=== PATIENT | male | born 1980 | race Caucasian/White ===

== ENCOUNTER 2016-09-01 09:27 | Inpatient (IN) | payer OTHER ==
[2016-09-01] MEDS ORDERED: PERCOCET 5MG/325MG TAB PO ONE (10:00)
[2016-09-01] MEDS ORDERED: D5W/LR 1,000 ML IV SCH (10:00)
[2016-09-01] MEDS ORDERED: CelecoXIB (CeleBREX) 100 MG CAP PO ONE (10:00)
[2016-09-01] MEDS ORDERED: NAPR500T PO (10:48)
[2016-09-01] MEDS ORDERED: NAPR500T3 PO (10:48)
[2016-09-01] MEDS ORDERED: TRAM-533 PO (10:49)
--- NOTE | 2016-09-01 11:37 | HPE ---
DATE OF ADMISSION: 09/01/2016 CHIEF COMPLAINT: Neck pain and pain radiating to his left upper extremity. HISTORY: This pleasant 36-year-old male patient did develop a stiff neck around August 05, 2016. He initially noted just a stiff neck and in August started to develop numbness and tingling in his hand mainly along his small finger, ring finger and middle finger. It continued to progress to the point that he is unable to perform weightlifting type activities due to the pain and weakness in his left upper extremity. He feels now that he is unable to do push-ups. He was initially able to bench press 405 and now he cannot bench press 130 pounds. He tried anti-inflammatories and rest and activity modifications but continued to have symptoms. He was seen in the [facility] where they noted a large C5-6 left-sided disk and sent him to orthopedics due to his weakness and disc herniation. He was seen by Dr. Greenwood who recommended an anterior cervical decompression and fusion at C5-6 on an urgent basis. X-rays notable for relatively unremarkable cervical series. MRI is notable for a large C5-6 left-sided disk herniation. MEDICAL OPTIMIZATION: None. ALLERGIES: NO KNOWN DRUG ALLERGIES. CURRENT MEDICATIONS: Tramadol and naproxen. He discontinued naproxen 1 day ago. He is also on a Medrol Dose pack. MEDICAL HISTORY: Neck pain and pain radiating to his left arm, otherwise unremarkable. PAST SURGICAL HISTORY: He had a left ankle fracture that was treated with open reduction internal fixation. SOCIAL HISTORY: Does not smoke. He does not use alcohol. He is currently employed the . FAMILY HISTORY: Noncontributory. REVIEW OF SYSTEMS: Denies fever or chills. Denies chest pain, shortness breath or cough. Denies difficulty breathing. Denies abdominal pain. Denies nausea or vomiting. Notes persistent pain in his neck and weakness in his left upper extremity and pain shooting down his left arm. PHYSICAL EXAMINATION: Physical exam today reveals a well-nourished, well-developed alert male patient who walks with a normal gait. His gait is not wide-based. Spurling's is positive and triceps and biceps strength is 3/5 on the left in comparison to the right. Deep tendon reflexes are 1 at the left arm, 1 at the bilateral biceps, absent at the left brachial radialis, trace at the triceps on the left, 1 at the triceps on the right, trace at the brachial radialis on the right. Deep tendon reflex lower extremities are 1 at the ankles, 1 at the knees. Clonus is negative. Mcwilliams's is negative. He was irritability with hyperextension on exam. Skin is intact. No erythema, edema or ecchymosis. Lungs are clear to auscultation without rales or wheeze. Heart: Regular rate and rhythm. Abdomen: Bowel sounds are present. His mood and affect are appropriate for the situation. Vital signs: Blood pressure 144/84, pulse 60, respirations 14, temperature 96.7, weight 251 pounds, height 5.10. LABORATORY DATA: Pending. IMPRESSION: Cervical disk herniation to the left side with left upper extremity radiculopathy and weakness. PLAN: He has consented for a anterior cervical decompression and fusion C5-[address] Greenwood.
[2016-09-01 12:33] LABS: MEAN CORPUSCULAR HEMOGLOBIN 32.1 pg (27.0-33.0); MEAN CORPUSCULAR HGB CONC 35.1 g/dl (32.0-36.5); MEAN CORPUSCULAR VOLUME 91.3 fl (80.0-96.0); RED CELL DISTRIBUTION WIDTH 12.2 % (11.5-14.5); WHITE BLOOD COUNT 5.9 K/mm3 (4.0-10.0)
[2016-09-01 12:54] LABS: ANION GAP 8 MEQ/L (8-16); BLOOD UREA NITROGEN 14 MG/DL (7-18); CARBON DIOXIDE LEVEL 27 MEQ/L (21-32); CHLORIDE LEVEL 106 MEQ/L (98-107); CREATININE FOR GFR 0.88 MG/DL (0.70-1.30); GLOMERULAR FILTRATION RATE > 60.0 (>60); GLUCOSE, FASTING 93 MG/DL (70-105); SODIUM LEVEL 141 MEQ/L (136-145)
[2016-09-01] MEDS ORDERED: MIDAZOLAM INJ 2 MG/2 ML VIAL (J2250) As Ordered ONE (13:30)
[2016-09-01] MEDS ORDERED: fentaNYL 100 MCG/2 ML INJECTION (J3010) As Ordered ONE (13:30)
[2016-09-01] MEDS ORDERED: THROMBIN SOLN 20,000 UNITS KIT As Ordered ONE (13:40)
[2016-09-01] MEDS ORDERED: BUPIVACAINE/EPIN 0.25% 30 ML VIAL As Ordered ONE (13:40)
[2016-09-01] MEDS ORDERED: LIDOCAINE W/EPINEPHRINE 1% 20ML VIAL As Ordered ONE (13:40)
[2016-09-01] MEDS ORDERED: methylPREDNISolone 500 MG VIAL (J2930) As Ordered ONE (13:40)
[2016-09-01] MEDS ORDERED: BACITRACIN PWD 50,000 UNITS VIAL As Ordered ONE (13:41)
[2016-09-01] MEDS ORDERED: dexameTHASONE 4 MG/ML 1ML VIAL (J1100) As Ordered ONE (14:31)
[2016-09-01] MEDS ORDERED: ROCURONIUM BROMIDE 50 MG/5 ML VIAL/SYRINGE As Ordered ONE ×2 (14:31→14:37)
[2016-09-01] MEDS ORDERED: PROPOFOL 200 MG/20 ML VIAL As Ordered ONE (14:31)
[2016-09-01] MEDS ORDERED: LIDOCAINE 2% INJ 100 MG/5 ML SDV (FOR ANES.) As Ordered ONE (14:31)
[2016-09-01] MEDS ORDERED: ONDANSETRON 4MG/2ML VIAL (J2405) As Ordered ONE (14:32)
--- NOTE | 2016-09-01 15:30 | REP ---
Limited cervical spine series: Single intraoperative view: History: Anterior cervical discectomy C5-6. Findings: The portable cross-table lateral view of the cervical spine time stamped 3:01 p.m. on 09/01/2016 shows an intraoperative probe at the C6-7 disc space level. An orotracheal and oropharyngeal tube are both noted. Impression: Intraoperative probe is seen marking the C6-7 disc level. A second cross-table lateral intraoperative portable film is time stamped 04:12 p.m. This demonstrates that ventral discectomy and fusion plating has been done across the C5-6 disc level with good alignment. Signed by Benny Godfrey MD 10/04/2016 03:17 P
[2016-09-01] MEDS ORDERED: HYDROmorphone HCL 2 MG/ML 1ML VIAL (J1170) As Ordered ONE (15:45)
[2016-09-01] MEDS ORDERED: SUGAMMADEX SODIUM 500 MG/5 ML VIAL (BRIDION) As Ordered ONE (16:10)
[2016-09-01] MEDS ORDERED: fentaNYL 100 MCG/2 ML INJECTION (J3010) IV PRN (17:30)
[2016-09-01] MEDS ORDERED: MEPERIDINE INJ 25 MG/ML VIAL (J2175) IV PRN (17:30)
[2016-09-01] MEDS ORDERED: HYDROmorphone HCL 1 MG/ML SYRINGE (J1170) IV PRN ×3 (17:30→19:00)
[2016-09-01] MEDS ORDERED: PROMETHAZINE INJ 25 MG/ML VIAL (J2550) IV PRN (17:30)
[2016-09-01] MEDS ORDERED: ONDANSETRON 4MG/2ML VIAL (J2405) IV PRN (17:30)
[2016-09-01] MEDS ORDERED: PERCOCET 5MG/325MG TAB PO PRN ×3 (17:30)
[2016-09-01] MEDS ORDERED: LR 1,000 ML IV SCH (17:30)
[2016-09-01 17:45] VITALS: BP 131/69
[2016-09-01] MEDS ORDERED: CYCLOBENZAPRINE 10 MG TAB PO PRN (17:45)
[2016-09-01 18:15] VITALS: BP 128/71
[2016-09-01] MEDS: D5W/0.45% SODIUM CHLORIDE 1,000 ML IV SCH (18:18)
[2016-09-01 19:00] VITALS: BP 131/78
[2016-09-01 20:00] VITALS: BP 124/76
[2016-09-01 21:00] VITALS: BP 125/64
[2016-09-01] MEDS: PREGABALIN 50 MG CAP (LYRICA) PO SCH (21:09)
[2016-09-01] MEDS: ASCORBIC ACID 500 MG TAB PO SCH (21:09)
[2016-09-01 22:00] VITALS: BP 124/68
[2016-09-02 02:00] VITALS: BP 129/68
[2016-09-02] MEDS: D5W/0.45% SODIUM CHLORIDE 1,000 ML IV SCH (03:30)
[2016-09-02 06:00] VITALS: BP 126/70
[2016-09-02] MEDS ORDERED: MOM 30ML SUSPENSION UDC PO SCH (09:00)
[2016-09-02] MEDS: PREGABALIN 50 MG CAP (LYRICA) PO SCH (10:02)
[2016-09-02] MEDS: ASCORBIC ACID 500 MG TAB PO SCH (10:02)
--- NOTE | 2016-09-03 08:20 | RO ---
DATE OF PROCEDURE: 09/01/2016 PREOPERATIVE DIAGNOSIS: Left upper extremity radiculopathy secondary to cervical spinal stenosis and large disc herniation at C5-6. POSTOPERATIVE DIAGNOSIS: Left upper extremity radiculopathy secondary to cervical spinal stenosis and large disc herniation at C5-6. PROCEDURE: Anterior cervical discectomy and fusion procedure at C5-6 including endplate preparation, decompression of the thecal sac, spinal cord and disc herniation with fusion procedure using structural allograft for spine surgery and anterior cervical instrumentation C5-6 level. SURGEON: Thomas Greenwood MD [employer] OPERATIONS MANAGER: Jose Angel Guerrero PA-c ANESTHESIA: General. Estimated blood loss is less than 30 mL, replaced with crystalloid. No complications. Components used include VG2 structural graft, [place] 12 mm anterior cervical instrumentation, 14 mm screws. INDICATIONS: Weakness, sensory deficit and pain radiating into the left upper extremity progressive over a period of a month. MRI evidence of large disc herniation producing spinal stenosis and foraminal stenosis C5-6. Consent reviewed in detail with the patient including a emanuel discussion of the pathology involved, procedure proposed, alternatives including doing nothing or using autograft material versus donor graft material. The patient agreed to proceed. We had a emanuel discussion including a discussion of risks including but not limited to pain, failure, infection, bleeding blood loss, nerve injury, paralysis, hoarseness, swallowing trouble, need for more surgery and other issues. The patient wants to proceed. DESCRIPTION OF PROCEDURE: Identified in the holding area. Site side verified. Brought to the operating room. General endotracheal anesthesia was administered. He was positioned in the supine position for exposure of the cervical spine. Head halter traction 7 pounds utilized. Shoulders taped gently to the sides. Once he was sterilely prepped, draped in the usual fashion, time-out was accomplished. Incision was based on palpable landmarks. It was approximately 2.5 fingerbreadths long, infiltrated with 1% lidocaine with epinephrine, made with a #10 blade knife, developed down through skin and subcuticular tissues. The platysma was identified and divided perpendicular to its fibers exposing the sternocleidomastoid. Sternocleidomastoid dissection continued medial to it identifying the omohyoid. Dissection continued superior to the omohyoid. Carotid sheath was identified. Dissection continued to the prevertebral fascia. Mr. Guerrero utilized S retractors to assist with exposure here. Prevertebral fascia was elevated from the annulus and anterior vertebral bodies. At this stage, a bayonet spinal needle was placed for localization and a cross-table lateral was obtained. Dissection was developed superiorly exposing C5-6 disc elevating along the longus colli medial aspect. Retractors were applied, the Shadow-Line retractor, followed by distraction pins at C5 and C6. Annulus was then opened using #11 blade knife. Disk material removed using pituitary. Curettes utilized to remove cartilaginous endplate. Oval bur was utilized to further debride the cartilaginous endplate and square the vertebral endplates for grafting. Dissection included debridement of the uncinate process to the left midline. I did then elevate the posterior longitudinal ligament with a #4-0 curved curette and removed the posterior longitudinal ligament using #1 and #2 Kerrison. Disc material was extruded and removed, including some foraminal disc material. The thecal sac was appreciated and it did have a concave impression from the disc herniation, which had been removed. Irrigation was accomplished. Minimal bleeding was controlled with thrombin Gelfoam, which was then removed. Rasps were utilized to further prepare the endplates for grafting. Measured for a size 5 x 7 graft using sound. 5.7 graft was then soaked in bacitracin solution. I irrigated the wound, implanted the graft. It was tamped into place. We then applied a 12 mm anterior cervical [place] plate. A 12 mm drill and 14 mm screws were applied. The plate was locked using the torque device. Once that was accomplished, the wound was irrigated. Final lateral imaging studies taken verifying plate and graft placement and was closed with interrupted stitch at platysma, dermis and Dermabond utilized on skin. A cervical collar was applied. Patient extubated and moved to the recovery room in good condition. For further details, please refer to medical record. [facility]ALTH[facility]
--- NOTE | 2016-09-12 11:11 | DSES ---
DATE OF ADMISSION: 09/01/2016 DATE OF DISCHARGE: 09/02/2016 CHIEF COMPLAINT: Pain and weakness in his left upper extremity. OTHER DIAGNOSES: None. ADMITTING DIAGNOSES: Left arm weakness and pain with a large C5-6 disc herniation and foraminal stenosis. DISCHARGE DIAGNOSIS: left upper extremity weakness and pain, cervical stenosis and foraminal stenosis at C5-6, status post anterior cervical decompression and fusion C5-6. ATTENDING PHYSICIAN: Dr. Greenwood. HISTORY: This is a pleasant 36-year-old male patient with progressively worsening weakness and pain radiating to his left upper extremity. He was noted to have progressive weakness to the point that he was unable to perform his related duties. He was noted to have a large disc herniation at C5-6 with foraminal stenosis at that level. He was admitted for an anterior cervical decompression and fusion C5-6. OPERATION PERFORMED: Anterior cervical decompression and fusion C5-6. HOSPITAL COURSE: The patient was admitted on day of surgery and underwent an anterior cervical decompression and fusion C5-6, which was uneventful. He did well in the postoperative. His hospital course was without complications. He was up and out of bed with therapy per their protocol. He was tolerating the collar well. On day of discharge, he was doing well. He will use oral pain medications for pain control. He understands his postop instructions to include the use of the surgical collar and wound care. He will resume his preoperative medications and diet. He will followup in our office in 7-10 days for surgical followup. Please refer to the medical record for further details. [facility]
== END 2016-09-02 10:45 | disposition home or self-care (01) | DRG 473 ==
LOC: EDSTATUS 09:27 → M MS5PR 09:44 → M SDC 09:44 → M MS5PR 17:41 → M SDC 09-02 10:45 → M MS5PR 09-02 10:45
PROVIDERS: ADMIT Orthopaedic Surgery; ATTEND Orthopaedic Surgery
PROC: 0RB30ZZ Excision of Cervical Vertebral Disc, Open Approach (ICD-10-PCS; 2016-09-01)
PROC: 01N10ZZ Release Cervical Nerve, Open Approach (ICD-10-PCS; 2016-09-01)
PROC: 0RH104Z Insertion of Internal Fixation Device into Cervical Vertebral Joint, Open Approach (ICD-10-PCS; 2016-09-01)
PROC: 0RG20A0 Fusion of 2 or more Cervical Vertebral Joints with Interbody Fusion Device, Anterior Approach, Anterior Column, Open Approach (ICD-10-PCS; principal; 2016-09-01 12:00)
DX: M50.222 Other cervical disc displacement at C5-C6 level (principal); Z79.899 Other long term (current) drug therapy